=== PATIENT | female | born 1990 | race Two or more races ===

== ENCOUNTER 2018-02-07 14:33 | Emergency (ER) | payer MEDICAID, OTHER ==
[~2018-02-07] VITALS: Ht 160 cm; Wt 41.7 kg
[2018-02-07 14:58] VITALS: BP 122/72
== END 2018-02-07 15:51 | disposition home or self-care (01) ==
LOC: ER 14:38
DX: J03.90 Acute tonsillitis, unspecified (principal); Z88.8 Allergy status to other drugs, medicaments and biological substances

== ENCOUNTER 2021-08-06 14:34 | Emergency (ER) | payer MEDICAID, OTHER ==
[~2021-08-06] VITALS: Ht 160 cm; Wt 44.5 kg
[2021-08-06 16:23] VITALS: BP 133/82
[2021-08-06] MEDS ORDERED: AZITTAB PO ×2 (17:30→17:31)
== END 2021-08-06 17:51 | disposition home or self-care (01) ==
LOC: ER 14:34
DX: J02.9 Acute pharyngitis, unspecified (principal); E78.5 Hyperlipidemia, unspecified; Z79.2 Long term (current) use of antibiotics; Z88.0 Allergy status to penicillin; Z88.8 Allergy status to other drugs, medicaments and biological substances

== ENCOUNTER 2022-01-07 20:16 | Inpatient (IN) | payer MEDICAID ==
[~2022-01-07] VITALS: Ht 162.6 cm; Wt 46.1 kg
[~2022-01-07 20:16] MED LIST: AZITTAB PO
[2022-01-07] MEDS ORDERED: SODIUM CHLORIDE 0.9% 1,000 ML IV ONE (22:00)
[2022-01-07 23:14] LABS: Basophils # (auto) 0.1 10 ^3/uL (0-0.2); Basophils % (auto) 0.9 % (0.0-2.0); Eosinophils # (auto) 0.1 10 ^3/uL (0-0.8); Eosinophils % (auto) 1.4 % (0.0-7.0); Hematocrit 42.9 % (36.0-46.0); Hemoglobin 14.3 g/dL (12.2-16.2); Lymphocytes # (auto) 2.5 10 ^3/uL (0.4-5.4); Lymphocytes % (auto) 45.2 % (10.0-50.0); Mean Corpuscular Hemoglobin 28.1 pg (28.0-32.0); Mean Corpuscular Hgb Conc. 33.4 g/dL (32.0-36.0); Mean Corpuscular Volume 83.9 fL (80.0-100.0); Monocytes # (auto) 0.6 10 ^3/uL (0-1.3); Monocytes % (auto) 11.2 % (0.0-12.0); Neutrophils # (auto) 2.3 10 ^3/uL (1.6-8.6); Neutrophils % (auto) 41.3 % (37.0-80.0); Nucleated Red Blood Cells % 0.1 %; Red Blood Cells 5.11 10^6/uL (4.0-5.20); Red Cell Distribution Width 13.4 % (11.8-14.3); White Blood Cell 5.5 10^3/uL (4.4-10.8)
[2022-01-07 23:32] LABS: Albumin 3.5 g/dL (3.4-5.0); Calcium 8.8 mg/dL (8.5-10.1); Magnesium 1.9 mg/dL (1.6-2.6); Potassium 4.3 mmol/L (3.5-5.1)
[2022-01-07 23:34] LABS: BUN/Creatinine Ratio 38.2
[2022-01-07 23:37] LABS: Bilirubin, Total 0.5 mg/dL (0.2-1.0); Total Protein 6.8 g/dL (6.4-8.2)
[2022-01-08] MEDS ORDERED: DexAMETHasone SOD PHOS 4 MG/1ML SDV INJ IV ONE (03:45)
[2022-01-08] MEDS ORDERED: POTASSIUM IODIDE 1 GM/ML PO ONE (03:45)
[2022-01-08] MEDS ORDERED: PROPYLTHIOURACIL 50 MG TAB PO ONE (03:45)
[2022-01-08] MEDS ORDERED: PROPRANOLOL HCL 1 MG/ML VIAL IV ONE ×2 (03:45→05:30)
[2022-01-08 03:52] LABS: Urine Bacteria NONE SEEN /hpf (None Seen); Urine Blood Negative /uL (Negative); Urine Specific Gravity 1.013 (1.001-1.035); Urine WBC 2 /hpf (0 - 5)
[2022-01-08] MEDS ORDERED: methIMAzole 5 MG TAB PO ONE (04:15)
[2022-01-08] MEDS ORDERED: ONDANSETRON HCL 4 MG/2 ML VIAL IV PRN (06:30)
[2022-01-08] MEDS ORDERED: SODIUM CHLORIDE 0.9% 1,000 ML IV SCH (06:30)
[2022-01-08] MEDS ORDERED: HYDROcodone-ACET 5/325MG TAB PO PRN (06:30)
[2022-01-08] MEDS ORDERED: ACETAMINOPHEN 325 MG TAB PO PRN (06:30)
[2022-01-08] MEDS ORDERED: DOCUSATE SOD 100 MG CAP PO PRN (06:30)
[2022-01-08] MEDS ORDERED: MORPHINE SULFATE INJ 2 MG/ml SYRG IV PRN (07:00)
[2022-01-08] MEDS ORDERED: NITROGLYCERIN 0.4 MG SL TAB SL PRN (07:00)
[2022-01-08 07:43] LABS: Calcium 8.5 mg/dL (8.5-10.1); Potassium 3.8 mmol/L (3.5-5.1)
[2022-01-08 07:48] LABS: Basophils # (auto) 0 10 ^3/uL (0-0.2); Basophils % (auto) 0.9 % (0.0-2.0); Eosinophils # (auto) 0 10 ^3/uL (0-0.8); Eosinophils % (auto) 0.7 % (0.0-7.0); Hematocrit 41.2 % (36.0-46.0); Hemoglobin 13.9 g/dL (12.2-16.2); Lymphocytes # (auto) 0.9 10 ^3/uL (0.4-5.4); Lymphocytes % (auto) 21.8 % (10.0-50.0); Mean Corpuscular Hemoglobin 28.3 pg (28.0-32.0); Mean Corpuscular Hgb Conc. 33.8 g/dL (32.0-36.0); Mean Corpuscular Volume 83.8 fL (80.0-100.0); Monocytes # (auto) 0.1 10 ^3/uL (0-1.3); Monocytes % (auto) 3.2 % (0.0-12.0); Neutrophils # (auto) 2.9 10 ^3/uL (1.6-8.6); Neutrophils % (auto) 73.4 % (37.0-80.0); Nucleated Red Blood Cells % 0.1 %; Red Blood Cells 4.92 10^6/uL (4.0-5.20); Red Cell Distribution Width 13.1 % (11.8-14.3)
[2022-01-08 07:48] LABS: Bilirubin, Total 0.5 mg/dL (0.2-1.0); Total Protein 5.8 g/dL (6.4-8.2)
[2022-01-08 08:47] LABS: Free T3 16.8 pg/mL (2.3-4.2); Free T4 (Free Thyroxine) 3.42 ng/dL (0.89-1.76); T3 Total 3.58 ng/mL (0.60-1.81)
[2022-01-08] MEDS ORDERED: DexAMETHasone SOD PHOS 10MG/1ML VIAL INJ IV SCH (10:00)
[2022-01-08] MEDS ORDERED: PROPRANOLOL HCL 20 MG TAB PO ONE (12:30)
[2022-01-08] MEDS: PROPRANOLOL HCL 20 MG TAB PO SCH ×3 (14:00→22:51)
[2022-01-08] MEDS: methIMAzole 5 MG TAB PO SCH ×2 (16:34→16:42)
[2022-01-09 04:37] LABS: Basophils # (auto) 0 10 ^3/uL (0-0.2); Basophils % (auto) 0.3 % (0.0-2.0); Eosinophils # (auto) 0 10 ^3/uL (0-0.8); Hematocrit 40.1 % (36.0-46.0); Hemoglobin 13.7 g/dL (12.2-16.2); Lymphocytes # (auto) 0.9 10 ^3/uL (0.4-5.4); Lymphocytes % (auto) 9.2 % (10.0-50.0); Mean Corpuscular Hemoglobin 28.5 pg (28.0-32.0); Mean Corpuscular Hgb Conc. 34.1 g/dL (32.0-36.0); Mean Corpuscular Volume 83.5 fL (80.0-100.0); Monocytes # (auto) 1.1 10 ^3/uL (0-1.3); Neutrophils # (auto) 7.8 10 ^3/uL (1.6-8.6); Neutrophils % (auto) 79.5 % (37.0-80.0); Nucleated Red Blood Cells % 0.1 %; Red Cell Distribution Width 13.4 % (11.8-14.3); White Blood Cell 9.8 10^3/uL (4.4-10.8)
[2022-01-09] MEDS: PROPRANOLOL HCL 20 MG TAB PO SCH ×2 (04:53→10:00)
[2022-01-09 05:36] LABS: Albumin 3.2 g/dL (3.4-5.0); BUN/Creatinine Ratio 14.5; Calcium 8.7 mg/dL (8.5-10.1); Potassium 4.1 mmol/L (3.5-5.1)
[2022-01-09 05:39] LABS: Bilirubin, Total 0.4 mg/dL (0.2-1.0); Total Protein 6.8 g/dL (6.4-8.2)
[2022-01-09] MEDS: methIMAzole 5 MG TAB PO SCH (05:48)
[2022-01-09] MEDS ORDERED: PROP20TA73 PO (11:17)
[2022-01-09] MEDS ORDERED: METH10TA6 PO (11:17)
[2022-01-09 11:55] VITALS: BP 120/70
== END 2022-01-09 15:45 | disposition home or self-care (01) | DRG 427 ==
LOC: ER 20:20 → OVERFLOW 01-08 06:47
PROVIDERS: ADMIT Nurse Practitioner Family; ATTEND Internal Medicine
DX: E05.00 Thyrotoxicosis with diffuse goiter without thyrotoxic crisis or storm (principal); R63.6 Underweight; Z20.822 Contact with and (suspected) exposure to COVID-19; Z68.1 Body mass index [BMI] 19.9 or less, adult
CPT/HCPCS: 36415; 71045; 76536; 80053; 81001; 81025; 83735; 84436; 84439; 84443; 84480; 84481; 84484; 85025; 86376; 86800; 87426; 96361; 96374; 96375; 99291; G0378; J1100

== ENCOUNTER 2022-02-03 19:18 | Emergency (ER) | payer OTHER, MEDICAID ==
[~2022-02-03] VITALS: Ht 160 cm; Wt 43.6 kg
[~2022-02-03 19:18] MED LIST changes: +METH10TA6 PO; +PROP20TA73 PO
[2022-02-03 19:52] VITALS: BP 111/71
[2022-02-03] MEDS ORDERED: ACETAMINOPHEN 500 MG TAB PO ONE (20:30)
== END 2022-02-03 21:58 | disposition home or self-care (01) ==
LOC: ER 19:18
DX: S16.1XXA Strain of muscle, fascia and tendon at neck level, initial encounter (principal); Z79.2 Long term (current) use of antibiotics; Z79.899 Other long term (current) drug therapy; Z88.0 Allergy status to penicillin; Z88.1 Allergy status to other antibiotic agents; Z88.8 Allergy status to other drugs, medicaments and biological substances; V89.2XXA Person injured in unspecified motor-vehicle accident, traffic, initial encounter; Y93.89 Activity, other specified; Y92.89 Other specified places as the place of occurrence of the external cause; Y99.8 Other external cause status
CPT/HCPCS: 72040

== ENCOUNTER 2022-06-20 08:59 | Emergency (ER) | payer MEDICAID, OTHER ==
[~2022-06-20] VITALS: Ht 157.5 cm; Wt 48.1 kg
[2022-06-20 10:12] VITALS: BP 138/80
[2022-06-20] MEDS ORDERED: DexAMETHasone SOD PHOS 10MG/1ML VIAL INJ IM ONE (11:00)
[2022-06-20] MEDS ORDERED: diphenhdrAMINE HCL 50 MG/1 ML VL IM ONE (11:00)
[2022-06-20] MEDS ORDERED: DIPH25CA66 PO (11:03)
[2022-06-20] MEDS ORDERED: EPIN0.1I11 IJ (11:03)
[2022-06-20] MEDS ORDERED: PRED20TA2 PO (11:03)
[2022-06-20 11:28] LABS: Urine Bacteria NONE SEEN /hpf (None Seen); Urine Blood Negative /uL (Negative); Urine Mucus FEW (None Seen); Urine Specific Gravity 1.016 (1.001-1.035); Urine WBC 5 /hpf (0 - 5)
[2022-06-20] MEDS ORDERED: AZITHROMYCIN 250 MG TAB PO STA (13:10)
[2022-06-20] MEDS ORDERED: DOXY-286 PO (13:20)
[2022-06-20 17:57] LABS: Hepatitis B Surface Antibody Positive (Negative)
[2022-06-21 08:06] LABS: RPR Non Reactive (Non Reactive)
== END 2022-06-20 13:52 | disposition home or self-care (01) ==
LOC: ER 08:59
DX: L29.8 Other pruritus (principal); T78.40XA Allergy, unspecified, initial encounter; I10 Essential (primary) hypertension; Z88.0 Allergy status to penicillin; Z88.1 Allergy status to other antibiotic agents; Z20.5 Contact with and (suspected) exposure to viral hepatitis; Z88.6 Allergy status to analgesic agent; X58.XXXA Exposure to other specified factors, initial encounter
CPT/HCPCS: 36415; 81001; 86592; 86703; 86706; 86803; 87340; 87491; 87591; 96372; 99283; J1100; J1200

== ENCOUNTER 2022-08-02 09:45 | Emergency (ER) | payer MEDICAID ==
[~2022-08-02] VITALS: Ht 160 cm; Wt 47.3 kg
[~2022-08-02 09:45] MED LIST changes: +DIPH25CA66 PO; +DOXY-286 PO; +EPIN0.1I11 IJ; +METH-552 PO; -METH10TA6 PO; +PRED20TA2 PO; +PROP1TAB53 PO; -PROP20TA73 PO
[2022-08-02] MEDS ORDERED: PROM1SOL4 PO (11:02)
[2022-08-02] MEDS ORDERED: CEPH500C PO (11:02)
[2022-08-02] MEDS ORDERED: TOB03OS OP (11:02)
[2022-08-02 11:07] VITALS: BP 119/76
== END 2022-08-02 11:12 | disposition home or self-care (01) ==
LOC: ER 09:45
DX: H66.93 Otitis media, unspecified, bilateral (principal); J20.9 Acute bronchitis, unspecified; H10.33 Unspecified acute conjunctivitis, bilateral; Z88.0 Allergy status to penicillin; Z88.6 Allergy status to analgesic agent
CPT/HCPCS: 71045

== ENCOUNTER 2023-03-30 15:57 | Emergency (ER) | payer MEDICAID ==
[~2023-03-30] VITALS: Ht 160 cm; Wt 49.3 kg
[~2023-03-30 15:57] MED LIST changes: +CEPH500C PO; +PROM1SOL4 PO; +TOB03OS OP
[2023-03-30 16:35] VITALS: BP 138/78; PULSE 102; RESP 16; TEMP 98.2; O2SAT 95
[2023-03-30 17:14] LABS: COVID19 ANTIGEN SOFIA FIA NEGATIVE (NEGATIVE); Rapid Influenza A Negative (Negative); Rapid Influenza B Negative (Negative)
[2023-03-30] MEDS ORDERED: AZIT-43 PO (17:26)
[2023-03-30] MEDS ORDERED: BENZ200C64 PO (17:26)
== END 2023-03-30 17:30 | disposition home or self-care (01) ==
LOC: ER 15:57
DX: H66.93 Otitis media, unspecified, bilateral (principal); J02.9 Acute pharyngitis, unspecified; Z88.1 Allergy status to other antibiotic agents; Z88.0 Allergy status to penicillin; Z88.6 Allergy status to analgesic agent; Z20.822 Contact with and (suspected) exposure to COVID-19
CPT/HCPCS: 36415; 87426; 87804